=== PATIENT | female | born 1995 | race Hispanic/Latino ===

== ENCOUNTER 2019-03-09 09:34 | Outpatient (CLI) | payer OTHER ==
--- NOTE | 2019-03-10 13:13 | PFT ---
PATIENT HISTORY: HEIGHT: 62 in WEIGHT: 184 SMOKER: no HOW LON yrs of Marijuana use PACKS PER DAY PRODUCTIVE COUGH: no LUNG DISEASE: unknown PHYSICIAN INTERPRETATION FINAL REPORT: Vital Capacity and Expiratory Flows are normal.No further improvement after Bronchodilator Therapy. Total Lung Capacity was normal. RV/TLC slightly decreased. Gas transfer was at lower limit of normal. Airway resistance was slightly increased. IMPRESSION: Normal Study, borderline reduced diffusion capacity of unknown significance. Supervisor Record Press: KAMALA Pharmacology Teacher: KAMALA PENA
== END 2019-03-09 09:35 | disposition home or self-care (01) ==
LOC: CP 09:34
PROVIDERS: ATTEND Family Medicine
DX: J45.909 Unspecified asthma, uncomplicated (principal); K21.9 Gastro-esophageal reflux disease without esophagitis
CPT/HCPCS: 94060; 94727; 94729